=== PATIENT | male | born 1960 | race African-American/Black ===

== ENCOUNTER 2016-12-17 17:23 | Emergency (ER) | payer OTHER ==
[~2016-12-17] VITALS: Ht 154.9 cm; Wt 63.5 kg
[2016-12-17 17:45] VITALS: BP 135/80
--- NOTE | 2016-12-17 17:51 | Emergency Room Report ---
History of Present Illness General Chief Complaint: Earache Source: Patient Present Illness HPI 56-year-old male presents to the emergency department complaining of 10 out of 10 in severity bilateral ear pain with malodorous discharge x11 days. Patient finished a course of oral amoxicillin that was prescribed to him the ear infection 4 days ago. Patient states that he had no improvement of his symptoms. Patient denies fevers, chills he reports some muffled when moderate d /c is present. Patient denies nasal congestion, cough, sore throat. He denies rashes. Deneis hx of DM or immunocompromise. Denies CP, Palpitations, LOC, AMS , dizziness, Changes in Vision, Sensation, paresthesias, or a sudden severe headache. Allergies: Coded Allergies: No Known Allergies (Unverified , 12/17/16) Patient History Past Medical History: see triage record Past Surgical History: none Pertinent Family History: none Immunizations: UTD Reviewed Nursing Documentation: PMH: Agreed, PSxH: Agreed Nursing Documentation-PMH Past Medical History: No Stated History Review of Systems All Other Systems: negative except mentioned in HPI Physical Exam Vital Signs Date Time Temp Pulse Resp B/P (MAP) Pulse Ox O2 Delivery O2 Flow Rate FiO2 12/17/16 17:26 98.1 68 14 135/80 97 Room Air Sp02 EP Interpretation: reviewed, normal General Appearance: no apparent distress, alert, GCS 15, non-toxic Head: normocephalic, atraumatic Eyes: bilateral eye normal inspection, bilateral eye PERRL ENT: hearing grossly normal, normal voice, uvula midline, moist mucus membranes , other - Bilateral Canals are erythematous and edematous in appearance with Yellow-white purulent thich d/c noted, no TM involvement, no evidence of mastoiditis or preauricular LAD on PE Neck: full range of motion Respiratory: lungs clear, normal breath sounds, speaking full sentences Cardiovascular #1: regular rate, rhythm Musculoskeletal: back normal, gait/station normal, normal range of motion Neurologic: alert, oriented x3, responsive, motor strength/tone normal, sensory intact, speech normal Skin: normal color, no rash, warm/dry, well hydrated Lymphatic: no adenopathy Medical Decision Making PA Attestation Dr. Farnsworth is my supervising Physician whom patient management has been discussed with. Diagnostic Impression: Primary Impression: Otitis externa of both ears Qualified Codes: H60.393 - Other infective otitis externa, bilateral ER Course 56-year-old male presents to the emergency department complaining of 10 out of 10 in severity bilateral ear pain with malodorous discharge x11 days. Patient finished a course of oral amoxicillin that was prescribed to him the ear infection 4 days ago. Patient states that he had no improvement of his symptoms. Patient denies fevers, chills he reports some muffled when moderate d /c is present. Patient denies nasal congestion, cough, sore throat. He denies rashes. Deneis hx of DM or immunocompromise. Denies CP, Palpitations, LOC, AMS , dizziness, Changes in Vision, Sensation, paresthesias, or a sudden severe headache. Ddx considered but are not limited to OM, OE, mastoiditis, TM perforation, FB Vital signs: are WNL, pt. is afebrile H&PE are most consistent with otitis externa ORDERS: none required at this time, the diagnosis is clinical -OTOSCOPY: Bilateral Canals are erythematous and edematous in appearance with Yellow-white purulent thich d/c noted, no TM involvement, no evidence of mastoiditis or preauricular LAD on PE ED INTERVENTIONS: None required at this time. -d/w pt. the necessity to treat with otic abx for this condition. also d/w pt. to follow up with PCP or ENT if symptoms still do not improve. Gave pt. ed return precautions for worsening or new symptoms. DISCHARGE: At this time pt. is stable for d/c to home. With Otic ABX. Will provide printed patient care instructions, and any necessary prescriptions. Care plan and follow up instructions have been discussed with the patient prior to discharge. Last Vital Signs Date Time Temp Pulse Resp B/P (MAP) Pulse Ox O2 Delivery O2 Flow Rate FiO2 12/17/16 17:26 98.1 68 14 135/80 97 Room Air Disposition: HOME, SELF-CARE Condition: Stable Scripts [auralgan generic] No Conflict Check 1 DROP OTIC TID, #10 ML Prov: Aleida Stevens P.A. 12/17/16 Neomycin/Polymyxin B Sulf/Hc* (CORTISPORIN EAR SOLUTION*) 10 Ml Solution 4 DROP BOTH EARS QID for 7 Days, #10 ML 0 Refills Prov: Aleida Stevens 12/17/16 Patient Instructions: Otitis Externa Additional Instructions: Take medications as directed. Follow up with a Primary Care Provider or ENT SPECIALIST in 3-5 days, even if your symptoms have resolved. --Please review list of primary care clinics, if you do not already have a primary care provider Return sooner to ED if new symptoms occur, or current symptoms become worse. - Please note that this Emergency Department Report was dictated using [employer] cover maker technology software, occasionally this can lead to erroneous entry secondary to interpretation by the dictation equipment. Aleida Stevens Dec 17, 2016 17:51
[2016-12-17] MEDS ORDERED: CORTISPORIN EAR10 ML BOTH EARS (17:52)
[2016-12-17] MEDS ORDERED: auralgan generic OTIC (17:52)
[2016-12-17 18:00] VITALS: BP 135/80
== END 2016-12-17 19:16 | disposition home or self-care (01) ==
LOC: EMR 17:50
DX: H60.93 Unspecified otitis externa, bilateral (principal)
CPT/HCPCS: 99283

== ENCOUNTER 2018-02-09 14:02 | Emergency (ER) | payer OTHER ==
[~2018-02-09] VITALS: Ht 172.7 cm; Wt 77.1 kg
[~2018-02-09 14:02] MED LIST: CORTISPORIN EAR10 ML BOTH EARS; auralgan generic OTIC
[2018-02-09 14:15] VITALS: BP 121/80
[2018-02-09] MEDS ORDERED: NKM (14:15)
--- NOTE | 2018-02-09 14:41 | Emergency Room Report ---
History of Present Illness General Chief Complaint: Earache Source: Patient Present Illness HPI 58-year-old male presents to the emergency department complaining of 6 out of 10 in severity pain, tenderness and yellowish colored discharge from the right ear over the course of 2 days. Patient also is reporting progressive muffled hearing out of that ear. He denies fevers or chills. Denies history of immunocompromise. Patient reports history of ear infection in the ear in the past and states that he just got over a head cold. He denies dizziness, GONZALEZ, N/V , or any other symptoms at this time he denies aggravating or relieving factors. Allergies: Coded Allergies: No Known Allergies (Unverified , 12/17/16) Patient History Past Medical History: see triage record Past Surgical History: none Pertinent Family History: none Reviewed Nursing Documentation: PMH: Agreed; PSxH: Agreed Nursing Documentation-PMH Past Medical History: No Stated History Review of Systems All Other Systems: negative except mentioned in HPI Physical Exam Vital Signs Date Time Temp Pulse Resp B/P (MAP) Pulse Ox O2 Delivery O2 Flow Rate FiO2 02/09/18 14:12 98.1 95 18 121/80 99 Room Air Sp02 EP Interpretation: reviewed, normal General Appearance: no apparent distress, alert, GCS 15, non-toxic Head: normocephalic, atraumatic Eyes: bilateral eye normal inspection, bilateral eye PERRL ENT: hearing grossly normal, normal pharynx, normal voice, uvula midline, moist mucus membranes, other - Ear d/c noted, canal swelling - right ear. TM's are normal Neck: full range of motion Respiratory: lungs clear, normal breath sounds, speaking full sentences Cardiovascular #1: regular rate, rhythm Musculoskeletal: back normal, gait/station normal, normal range of motion, non- tender Neurologic: alert, oriented x3, responsive, motor strength/tone normal, sensory intact, speech normal, grossly normal Psychiatric: judgement/insight normal Skin: normal color, no rash, warm/dry, well hydrated Lymphatic: no adenopathy Medical Decision Making PA Attestation Dr. meyer is my supervising Physician whom patient management has been discussed with. Diagnostic Impression: Primary Impression: Otitis externa Qualified Codes: H60.501 - Unspecified acute noninfective otitis externa, right ear ER Course 58-year-old male presents to the emergency department complaining of 6 out of 10 in severity pain, tenderness and yellowish colored discharge from the right ear over the course of 2 days. Patient also is reporting progressive muffled hearing out of that ear. He denies fevers or chills. Denies history of immunocompromise. Patient reports history of ear infection in the ear in the past and states that he just got over a head cold. He denies dizziness, GONZALEZ, N/V , or any other symptoms at this time he denies aggravating or relieving factors. Ddx considered but are not limited to OM, OE, mastoiditis, TM perforation, FB Vital signs: are WNL, pt. is afebrile H&PE are most consistent with otitis externa ORDERS: none required at this time, the diagnosis is clinical ED INTERVENTIONS: None required at this time. DISCHARGE: At this time pt. is stable for d/c to home. With Otic ABX. Will provide printed patient care instructions, and any necessary prescriptions. Care plan and follow up instructions have been discussed with the patient prior to discharge. Last Vital Signs Date Time Temp Pulse Resp B/P (MAP) Pulse Ox O2 Delivery O2 Flow Rate FiO2 02/09/18 14:12 98.1 95 18 121/80 99 Room Air Disposition: HOME, SELF-CARE Condition: Stable Scripts Neomycin/Polymyxin B Sulf/Hc (BGFVMDRI-UOLUDHXLF-LD EAR SOLN) 10 Ml Solution 4 DROP OT BID for 7 Days, #10 ML Prov: Aleida Stevens 02/09/18 Referrals: Ruth TRAMMELL,REFERRING (PCP) Patient Instructions: Otitis Externa, [id number] Additional Instructions: Take medications as directed. Follow up with a Primary Care Provider in 3-5 days, even if your symptoms have resolved. --Please review list of primary care clinics, if you do not already have a primary care provider Return sooner to ED if new symptoms occur, or current symptoms become worse. - Please note that this Emergency Department Report was dictated using [employer] technology software, occasionally this can lead to erroneous entry secondary to interpretation by the dictation equipment. Aleida Stevens Feb 09, 2018 14:40
[2018-02-09] MEDS ORDERED: NEOMYCIN-POLYMY10 ML OT (14:42)
[2018-02-09 14:58] VITALS: BP 121/98
== END 2018-02-09 14:58 | disposition home or self-care (01) ==
LOC: EMR 14:31
DX: H60.91 Unspecified otitis externa, right ear (principal)
CPT/HCPCS: 99282

== ENCOUNTER 2019-02-21 19:29 | Emergency (ER) | payer SELFPAY ==
[~2019-02-21] VITALS: Ht 170.2 cm; Wt 81.6 kg
[~2019-02-21 19:29] MED LIST changes: +NEOMYCIN-POLYMY10 ML OT; +NKM
--- NOTE | 2019-02-21 19:40 | NUR ---
ED Nurse Note: pt presents to ED c/o L sided CP that radiates down his L shoulder and arm to the elbow. symptoms started at 1600 today. pt denies taking anything for px [employer]. he states that lying on his L side alleviates the px. pt denies N/V and rates the px a /. pt reports that hew as at rest when the px started.
[2019-02-21 19:42] VITALS: BP 122/71
[2019-02-21 20:32] LABS: EOSINOPHILS % (AUTO) 2.2 % (0.0-3.0); HEMOGLOBIN 14.8 G/DL (14.2-18.0); LYMPHOCYTES % (AUTO) 25.8 % (20.0-45.0); MEAN CORPUSCULAR VOLUME 92 FL (80-99); PLATELET COUNT 224 K/UL (150-450); RED BLOOD COUNT 4.56 M/UL (4.70-6.10); WHITE BLOOD COUNT 9.4 K/UL (4.8-10.8)
[2019-02-21 20:34] LABS: ANION GAP 7 mmol/L (5-15); BLOOD UREA NITROGEN 13 mg/dL (7-18); CALCIUM 8.4 MG/DL (8.5-10.1); CARBON DIOXIDE 27 MMOL/L (21-32); CHLORIDE 104 MMOL/L (98-107); POTASSIUM 3.9 MMOL/L (3.5-5.1); SODIUM 138 MMOL/L (136-145)
[2019-02-21 20:45] LABS: ALANINE AMINOTRANSFERASE 26 U/L (12-78); ALBUMIN 3.6 G/DL (3.4-5.0); ALKALINE PHOSPHATASE 84 U/L (46-116); ASPARTATE AMINO TRANSFERASE 16 U/L (15-37); BILIRUBIN,TOTAL 0.3 MG/DL (0.2-1.0)
[2019-02-21] MEDS ORDERED: IBUPROFEN600 MG ORAL (21:25)
[2019-02-21] MEDS ORDERED: ROBAXIN-750750 MG PO (21:25)
[2019-02-21 21:40] VITALS: BP 113/70
--- NOTE | 2019-02-21 21:40 | NUR ---
ER DISCHARGE NOTE: Patient is cleared to be discharged per ERMD, pt is aox4, on room air, with stable vital signs. pt was given dc and prescription instructions, he was able to verbalize understanding of teachings and follw up instructions/ when to return to ED. pt id band and iv site removed without complications. pt is able to ambulate with steady gait. pt took all belongings.
--- NOTE | 2019-02-21 22:40 | Emergency Room Report ---
History of Present Illness General Chief Complaint: Chest Pain Source: Patient Present Illness HPI 59-year-old male presents ED for evaluation. Complaining of chest pain which started earlier today. Pain is left-sided, dull, 7 out of 10, radiating to the back. Worse with position changes. Worse with deep breaths. No other aggravating relieving factors. Denies any other associated symptoms Allergies: Coded Allergies: No Known Allergies (Unverified , 12/17/16) Patient History Past Medical History: none Past Surgical History: none Pertinent Family History: none Social History: Denies: smoking, alcohol use, drug use Immunizations: UTD Reviewed Nursing Documentation: PMH: Agreed; PSxH: Agreed Nursing Documentation-PMH Past Medical History: No Stated History Review of Systems All Other Systems: negative except mentioned in HPI Physical Exam Vital Signs Date Time Temp Pulse Resp B/P (MAP) Pulse Ox O2 Delivery O2 Flow Rate FiO2 02/21/19 19:39 98.6 80 19 122/71 (88) 100 Room Air Sp02 EP Interpretation: reviewed, normal General Appearance: no apparent distress, alert, GCS 15, non-toxic Head: normocephalic, atraumatic Eyes: bilateral eye normal inspection, bilateral eye PERRL ENT: hearing grossly normal, normal pharynx, no angioedema, normal voice Neck: full range of motion, supple/symm/no masses Respiratory: lungs clear, normal breath sounds, speaking full sentences, other - reproducible L anterior, posterior pain Cardiovascular #1: regular rate, rhythm, no edema Cardiovascular #2: 2+ carotid (R), 2+ carotid (L), 2+ radial (R), 2+ radial (L) , 2+ dorsalis pedis (R), 2+ dorsalis pedis (L) Gastrointestinal: normal bowel sounds, non tender, soft, non-distended, no guarding, no rebound Rectal: deferred Genitourinary: normal inspection, no CVA tenderness Musculoskeletal: back normal, normal range of motion, gait/station normal, non- tender Neurologic: alert, motor strength/tone normal, oriented x3, sensory intact, responsive, speech normal Psychiatric: judgement/insight normal, memory normal, mood/affect normal, no suicidal/homicidal ideation Reflexes: 3+ bicep (R), 3+ bicep (L), 3+ tricep (R), 3+ tricep (L), 3+ knee (R) , 3+ knee (L) Skin: no rash Lymphatic: no adenopathy Medical Decision Making Diagnostic Impression: Primary Impression: Chest wall pain ER Course Hospital Course 59-year-old male presents ED complaining of chest wall pain Differential diagnoses include: Rib fracture, AK/unstable angina, contusion, muscle strain Clinical course Patient placed on stretcher. After initial history and physical I ordered labs , EKG, chest x-ray. labs reviewed- all electrolytes normal, troponins negative, no leukocytosis, hemoglobin/hematocrit stable EKG - NSR, no acute ischemic changes interpreted by me Chest x-ray-no cardiomegaly, no rib fracture, no pneumothorax, no acute process Discussed findings with patient. Vitals stable. Negative troponin. Normal EKG. No cardiac risk factors. Pain appears muscular on exam. Will discharge to home. Safe for discharge for close outpatient follow-up. States he has a PMD I. I feel this is a highly complex case requiring extensive working including EKG/Rhythm strip, Xray/CT/US, Blood/urine lab work, repeat exams while in ED, and administration of strong opiates/narcotics for pain control, admission to hospital or close patient follow up. Diagnosis - chest wall pain Stable and discharged to home with prescription for Motrin, robaxin. Instructed to followup with PMD. Return to ED if symptoms recur or worsen Labs Test 02/21/19 19:55 White Blood Count 9.4 K/UL (4.8-10.8) Red Blood Count 4.56 M/UL (4.70-6.10) Hemoglobin 14.8 G/DL (14.2-18.0) Hematocrit 42.0 % (42.0-52.0) Mean Corpuscular Volume 92 FL (80-99) Mean Corpuscular Hemoglobin 32.4 PG (27.0-31.0) Mean Corpuscular Hemoglobin Concent 35.1 G/DL (32.0-36.0) Red Cell Distribution Width 11.0 % (11.6-14.8) Platelet Count 224 K/UL (150-450) Mean Platelet Volume 8.3 FL (6.5-10.1) Neutrophils (%) (Auto) 64.0 % (45.0-75.0) Lymphocytes (%) (Auto) 25.8 % (20.0-45.0) Monocytes (%) (Auto) 7.0 % (1.0-10.0) Eosinophils (%) (Auto) 2.2 % (0.0-3.0) Basophils (%) (Auto) 1.0 % (0.0-2.0) Sodium Level 138 MMOL/L (136-145) Potassium Level 3.9 MMOL/L (3.5-5.1) Chloride Level 104 MMOL/L (98-107) Carbon Dioxide Level 27 MMOL/L (21-32) Anion Gap 7 mmol/L (5-15) Blood Urea Nitrogen 13 mg/dL (7-18) Creatinine 1.0 MG/DL (0.55-1.30) Estimat Glomerular Filtration Rate > 60 mL/min (>60) Glucose Level 98 MG/DL (74-106) Calcium Level 8.4 MG/DL (8.5-10.1) Total Bilirubin 0.3 MG/DL (0.2-1.0) Aspartate Amino Transf (AST/SGOT) 16 U/L (15-37) Alanine Aminotransferase (ALT/SGPT) 26 U/L (12-78) Alkaline Phosphatase 84 U/L (46-116) Troponin I 0.000 ng/mL (0.000-0.056) Pro-B-Type Natriuretic Peptide 44 pg/mL (0-125) Total Protein 7.3 G/DL (6.4-8.2) Albumin 3.6 G/DL (3.4-5.0) Globulin 3.7 g/dL Albumin/Globulin Ratio 1.0 (1.0-2.7) EKG Diagnostic Results Rate: normal Rhythm: NSR ST Segments: no acute changes ASA given to the pt in ED: No Rhythm Strip Diag. Results EP Interpretation: yes Rhythm: NSR, no ectopy Chest X-Ray Diagnostic Results Chest X-Ray Diagnostic Results : Chest X-Ray Ordered: Yes # of Views/Limited/Complete: 1 View Indication: Chest Pain EP Interpretation: Yes Interpretation: no consolidation, no effusion, no pneumothorax, no acute cardiopulmonary disease Impression: No acute disease Electronically Signed by: Electronically signed by Cj Rojo MD Last Vital Signs Date Time Temp Pulse Resp B/P (MAP) Pulse Ox O2 Delivery O2 Flow Rate FiO2 1/6/20 21:40 74 15 113/70 97 Room Air 02/21/19 19:42 98.6 Status: improved Disposition: HOME, SELF-CARE Condition: Stable Scripts Methocarbamol* (ROBAXIN-750*) 750 Mg Tablet 750 MG PO TID, #21 TAB 0 Refills Prov: Cj Rojo MD 02/21/19 Ibuprofen* (MOTRIN*) 600 Mg Tablet 600 MG ORAL Q8H PRN for For Pain, #30 TAB 0 Refills Prov: Cj Rojo MD 02/21/19 Referrals: Ruth Davis [facility] Patient Instructions: Chest Wall Pain, [id number] Cj Rojo MD Feb 21, 2019 22:40
--- NOTE | 2019-02-22 11:15 | Diagnostic Imaging Report ---
Indication: Chest pain Technique: One view of the chest Comparison: none Findings: No acute infiltrates, effusions, or congestion. Tortuous calcified aorta. Normal heart size. Upper mediastinum unremarkable. Impression: No acute process.
== END 2019-02-21 21:40 | disposition home or self-care (01) ==
LOC: EMR 19:57
DX: R07.9 Chest pain, unspecified (principal)
CPT/HCPCS: 36415; 71045; 80053; 83880; 84484; 85025; 93005; 99283